=== PATIENT | male | born 1955 | race Caucasian/White ===

== ENCOUNTER 2019-11-13 11:28 | Emergency (ER) | payer BC, SELFPAY ==
[2019-11-13 11:45] VITALS: BMI 40.8
[2019-11-13 11:49] VITALS: BP 152/87; PULSE 74; RESP 18; TEMP 37.1; O2SAT 94
--- NOTE | 2019-11-13 12:10 | XRR_ITS ---
PROCEDURE INFORMATION: Exam: XR Left Knee Exam date and time: 11/13/2019 12:12 PM Age: 64 years old Clinical indication: Pain; Knee; Left TECHNIQUE: Imaging protocol: XR Left knee. Views: 3 views. COMPARISON: No relevant prior studies available. FINDINGS: Bones/joints: There is a subtle linear lucency at the medial tibial plateau seen on the oblique image, a nondisplaced fracture cannot be ruled out. No dislocation. Moderate to severe tricompartment degenerative changes at the knee. There is near complete loss of joint space height at the medial compartment and patellofemoral compartment Large joint effusion. Large calcified enthesophyte at the quadriceps tendon insertion. Bones are mildly osteopenic. Large calcified enthesophyte near the insertion of the patellar tendon. Soft tissues: No soft tissue swelling. No radiopaque foreign body. XR/XR knee LT 3V* [id number] IMPRESSION: 1. There is a subtle linear lucency at the medial tibial plateau seen on the oblique image, a nondisplaced fracture cannot be ruled out. Followup imaging recommended in 7-14 days if clinical concern for fracture persists. 2. Large joint effusion. 3. Moderate to severe degenerative changes at the knee. 4. Incidental/nonacute findings are listed in the report.
--- NOTE | 2019-11-13 12:10 | USR_ITS ---
PROCEDURE INFORMATION: Exam: US Duplex Left Lower Extremity Veins, Limited Exam date and time: 11/13/2019 12:12 PM Age: 64 years old Clinical indication: Pain; Leg, lower; Left; Additional info: Leg pain TECHNIQUE: Imaging protocol: Real-time Duplex ultrasound of the Left Lower Extremity with 2-D mcdaniel scale, color Doppler flow and spectral waveform analysis with image documentation. Limited exam focused on the left lower extremity veins. COMPARISON: No relevant prior studies available. FINDINGS: Left deep veins: Unremarkable. The common femoral, femoral, proximal profunda femoral, popliteal, peroneal, and posterior tibial veins are patent without thrombus. Normal Doppler waveforms. Normal compressibility and/or augmentation response. Left superficial veins: Unremarkable. Saphenofemoral junction is patent without thrombus. Soft tissues: Mild subcutaneous edema in the left lower extremity. US/CV venous duplex [facility] [id number] IMPRESSION: 1. No evidence for deep venous thrombosis. 2. Mild subcutaneous edema in the left lower extremity.
[2019-11-13] MEDS: HYDROcodone-acetaminophen 5-325 mg Tablet 1 TAB PO (12:30)
[2019-11-13 12:36] LABS: Basophils % 0.5 %; Eosinophils # 0.2 10^3/uL (0.0-0.8); Eosinophils % 2.7 %; Hematocrit 40.2 % (42.0-52.0); Lymphocytes # 1.5 10^3/uL (0.8-4.8); Lymphocytes % 17.2 %; Mean Corpuscular HGB Conc 32.3 g/dL (30.0-36.0); Mean Corpuscular Hemoglobin 28.4 pg (28.0-34.0); Mean Corpuscular Volume 87.8 fL (80-94); Mean Platelet Volume 8.7 fL (7.4-10.4); Monocytes # 1.2 10^3/uL (0.2-0.9); Monocytes % 13.4 %; Neutrophils # 5.71 10^3/uL (1.8-7.7); Neutrophils % 65.9 %; Nucleated Red Blood Cells % 0 %; Platelet Count 378 10^3/cmm (130-400); Red Blood Count 4.58 10^6/uL (4.1-5.3); Red Cell Distribution Width 11.8 % (12.1-15.1); White Blood Count 8.7 10^3/uL (4.0-10.0)
[2019-11-13 12:52] LABS: Alanine Aminotransferase 35 U/L (0-41); Albumin Level 3.7 g/dL (3.5-5.2); Alkaline Phosphatase 88 IU/L (40-130); Anion Gap 12.9 (5-19); Aspartate Amino Transferase 20 U/L (0-40); Blood Urea Nitrogen 19 mg/dL (8-23); C Reactive Protein 64.5 mg/L (0.0-4.9); Calcium 8.5 mg/dL (8.5-10.5); Carbon Dioxide 24 mmol/L (22-29); Chloride 105 mmol/L (98-107); Glomerular Filtration Rate 97.3 mL/min (90-130); Glucose 97 mg/dL (65-115); Osmolality Calculated 282 mOsm/kg (285-295); Potassium 3.9 mmol/L (3.5-5.1); Sodium 138 mmol/L (136-145); Total Bilirubin 0.4 mg/dL (0.15-1.2); Total Protein 6.7 g/dL (6.6-8.7)
[2019-11-13 13:20] LABS: Erythrocyte Sedimentation Rate 53 mm/hr (0-10)
--- NOTE | 2019-11-13 13:26 | ED_ITS ---
HPI - Extremity Problem General: Chief complaint: Extremity Problem,Nontraumatic Stated complaint: l knee pain Time Seen by Provider: 11/13/19 12:04 Source: patient Mode of arrival: ambulatory Limitations: no limitations History of Present Illness: HPI Narrative: Nate is a 64-year-old male who comes in complaining of left knee pain. He states the pain is been going on ever since he had a stem cell injection on October 04. The pain is gotten progressively worse. He feels like the pain is now radiating all the way down his leg. He denies any fevers, chills, nausea, vomiting or other complaints. The patient states that he can walk but that does make the pain worse. Patient is unaware of any other injuries that he may have sustained. He states the pain is chronic but worsening. Associated symptoms: Deny chest pain, fever(s) or rash Review of Systems Const: Denies: fever(s), chills, body aches, fatigue, malaise or diaphoresis Eyes: Denies: change in vision, blurry vision, blind spots, photophobia, eye discharge or eye redness ENMT: Denies: throat pain, odynophagia, hoarseness, swelling of lips/tongue, oral sores, ear or mastoid pain, ear discharge, change in hearing or nasal discharge Card: Denies: chest pain, palpitations, irregular heart rhythm, edema, lightheadedness, syncope, pre-syncope, dyspnea on exertion or orthopnea Resp: Denies: dyspnea, productive cough, non-productive cough, wheezing, hemoptysis or chest congestion GI: Denies: abdominal pain, nausea, vomiting, hematemesis, coffee ground emesis, heartburn, diarrhea, constipation, GI cramping, hematochezia or melena : Denies: flank pain, dysuria, urinary frequency, urinary urgency or hematuria Musc: Reports: joint pain; Denies: neck pain, back pain, extremity pain, extremity swelling, joint swelling, joint redness, joint warmth or joint stiffness Skin/Breast: Denies: rash, pruritus, erythema, skin tenderness or jaundice Neuro: Denies: headache(s), numbness in extremities, weakness in extremities, sensory changes, lack of coordination, difficulty walking, dizziness, vertigo, confusion, Slurred speech present or seizure-like activity Jose/Lymph: Denies: easy bruising, easy bleeding, petechiae, purpura or enlarged lymph nodes All/Imm: Denies: urticaria, throat swelling, tongue swelling, facial swelling or acute wheezing PFSH ED PFSH: Medical History Hypertension Osteoarthritis Physical Exam Const: COMMON NORMALS: no acute distress, patient oriented x3, no limitations, healthy appearing and well nourished GENERAL APPEARANCE: cooperative, well kempt and well developed HENMT: COMMON NORMALS: normocephalic, atraumatic, external ears normal, EAC's normal and Normal external nose present HEAD & SCALP: normal to inspection, normocephalic and atraumatic FACE & SINUS: normal facial exam and face symmet joss NOSE: Normal external nose present and Normal nares present EXTERNAL EAR: Yes external ears normal EXTERNAL AUDITORY CANAL: EAC's normal MOUTH: Normal oral and palatal mucosa present, lip normal and tongue normal Eye: COMMON NORMALS: Equal, round and reactive pupils present and conjunctivae normal GENERAL EYE: appearance normal, both eyes and all related structures ALIGNMENT: Yes alignment normal PERIORBITAL: periorbital findings normal EYELID: eyelids normal CONJUNCTIVA: Yes conjunctivae normal SCLERA: sclerae normal PUPIL: Yes Equal, round and reactive pupils present Neck/C-Spine: COMMON NORMALS: full ROM, no lymphadenopathy, supple, no meningeal signs and no JVD GENERAL: Yes normal visual inspection and Yes trachea midline Chest: COMMONS NORMALS: normal inspection of the chest and normal palpation of entire chest wall Resp: COMMON NORMALS: normal respiratory effort, No retractions and No use of accessory muscles EFFORT & INSPECTION: Yes able to speak in complete sentences and Yes symmetric chest movement AUSCULTATION: no crackles, no rales, no rhonchi and no wheezes Cardio: COMMON NORMALS: no JVD, regular rate, regular rhythm, S1 normal heart sound present and S2 normal heart sound present RATE: regular rate RHYTHM: regular rhythm HEART SOUNDS: S1 normal heart sound present, S2 normal heart sound present, no click, no gallops, no murmurs, no rubs and abnormal split S2 GI: COMMON NORMALS: Soft to palpation and No hepatosplenomegaly present PALPATION: Yes Soft to palpation, No Tenderness to palpation present (GI), No Guarding due to palpation present (GI), No Rigid due to palpation, Yes No hepatosplenomegaly present, No Hernia present, No Palpable mass present and No Pulsatile mass present : COMMON NORMALS: Yes no CVA tenderness BLADDER/KIDNEY EXAM: Yes no CVA tenderness Back/Pelvis: COMMON NORMALS: no CVA tenderness, thoracic and lumbar spine normal to inspection, no thoracic nor lumbar tenderness and thoraco-lumbar ROM normal Extremity: NARRATIVE EXTREMITY EXAM: Musculoskeletal exam is unremarkable except at the left knee. Left knee is swollen but not hot or warm to the touch. There is no overlying erythema. He has full range of motion although limited at the very extremes of range of motion secondary to swelling. Neuro: COMMON NORMALS: patient oriented x3, CN's II-XII intact bilaterally, moves all extremities, no focal motor deficits and no sensory deficits noted MENINGEAL SIGNS: Yes no meningeal signs SPEECH: speech normal Psych: COMMON NORMALS: mental status grossly normal, Normal thought process present, cooperative, normal affect, speech normal and activity/motor behavior normal APPEARANCE: Yes well kempt SPEECH: Yes normal speech THOUGHT PROCESS: Normal thought process present Skin: COMMON NORMALS: no rashes or lesions noted, turgor normal, no jaundice, no petechiae and no mottling GENERAL SKIN EXAM: no rashes or lesions noted and turgor normal Procedures Joint Aspiration/Injection Joint Asp./Inject. 1: Time Out Performed: Yes Side of body: left Joint Aspirated: knee Skin Prep: Povidone-Iodine1% Local Anesthetic: lidocaine 1% Amount of anesthesia used (mL): 5 Needle Size Used: 20G Patient Tolerated Procedure: well Additional Comments: Patient was not willing to allow us to attempt another time after 3 failed attempts by me. Course ED course: 1328 -risks of infection in the knee present and I have discussed with the patient risks and benefits of arthrocentesis. He agrees to go ahead and let my nurse practitioner proceed with arthrocentesis. Vital Signs: Vital signs: Vital Signs Temperature 98.7 F 11/13/19 11:49 Pulse Rate 74 11/13/19 11:49 Respiratory Rate 18 11/13/19 15:27 Blood Pressure 127/60 11/13/19 15:27 Pulse Oximetry 94 11/13/19 11:49 MDM - Extremity (Nontraumatic) MDM Narrative: Medical decision making narrative: Nate is a nice 64-year-old male who comes in complaining of left knee pain since early to mid September. Patient states the pain is progressive but has plateaued. This was not sudden onset. There is been no fevers or chills and the patient still has good range of motion of his joint. Is no cause can be found and DVT has been ruled out I recommended arthrocentesis for pressure relief and for diagnosis purposes and the patient consented. Ultimately the patient declined any further attempts. I reviewed the case with Dr. Camejo who states the patient likely just has osteoarthritis despite his elevated sed rate and CRP. He states that can commonly be seen with osteoarthritis. The patient does not have a clinical story consistent with acute infectious joint and at this time he is declining any further attempts at pulling off fluid. Dr. Camejo has agreed to see the patient in his office early this week for follow-up. He would like the patient placed on a Medrol Dosepak and something for pain. We will do this as well as right the patient off work and have him stay off his joint and follow-up with Dr. Camejo. He understands he is taking a risk by leaving without definitive rule out of infections joint but he thinks this is unlikely after we reviewed this and he is ultimately decided himself not to proceed but does understand he can return should he change his mind. Lab Data: Attestation: I reviewed the patient's lab results. Labs: Lab Results 11/13/19 11/13/19 11/13/19 Range/Units 12:16 12:16 12:16 WBC 8.7 (4.0-10.0) 10^3/ uL RBC 4.58 (4.1-5.3) 10^6/u L Hgb 13.0 (11.7-16.6) g/dL Hct 40.2 L (42.0-52.0) % MCV 87.8 (80-94) fL MCH 28.4 (28.0-34.0) pg MCHC 32.3 (30.0-36.0) g/dL RDW 11.8 L (12.1-15.1) % Plt Count 378 (130-400) 10^3/c mm MPV 8.7 (7.4-10.4) fL Neut % (Auto) 65.9 % Lymph % (Auto) 17.2 % [place] % (Auto) 13.4 % Eos % (Auto) 2.7 % Baso % (Auto) 0.5 % Neut # (Auto) 5.71 (1.8-7.7) 10^3/u L Lymph # (Auto) 1.5 (0.8-4.8) 10^3/u L [place] # (Auto) 1.2 H (0.2-0.9) 10^3/u L Eos # (Auto) 0.2 (0.0-0.8) 10^3/u L Baso # (Auto) 0.0 (0.0-0.1) 10^3/u L Nucleated RBC % (a uto) 0 % Nucleated RBCs # 0.0 /100WBC ESR 53 H (0-10) mm/hr Sodium 138 (136-145) mmol/L Potassium 3.9 (3.5-5.1) mmol/L Chloride 105 (98-107) mmol/L Carbon Dioxide 24 (22-29) mmol/L Anion Gap 12.9 (5-19) BUN 19 (8-23) mg/dL Creatinine 0.8 (0.7-1.2) mg/dL GFR Calculation 97.3 (90-130) mL/min Glucose 97 (65-115) mg/dL Calculated Osmolal ity 282 L (285-295) mOsm/k g Uric Acid (3.4-7.0) mg/dL Calcium 8.5 (8.5-10.5) mg/dL Total Bilirubin 0.4 (0.15-1.2) mg/dL AST 20 (0-40) U/L ALT 35 (0-41) U/L Alkaline Phosphata se 88 (40-130) IU/L C-Reactive Protein 64.5 H (0.0-4.9) mg/L Total Protein 6.7 (6.6-8.7) g/dL Albumin 3.7 (3.5-5.2) g/dL Globulin 3.0 (1.3-4.6) g/dL 11/13/19 Range/Units 12:16 WBC (4.0-10.0) 10^3/ uL RBC (4.1-5.3) 10^6/u L Hgb (11.7-16.6) g/dL Hct (42.0-52.0) % MCV (80-94) fL MCH (28.0-34.0) pg MCHC (30.0-36.0) g/dL RDW (12.1-15.1) % Plt Count (130-400) 10^3/c mm MPV (7.4-10.4) fL Neut % (Auto) % Lymph % (Auto) % Canadian % (Auto) % Eos % (Auto) % Baso % (Auto) % Neut # (Auto) (1.8-7.7) 10^3/u L Lymph # (Auto) (0.8-4.8) 10^3/u L Canadian # (Auto) (0.2-0.9) 10^3/u L Eos # (Auto) (0.0-0.8) 10^3/u L Baso # (Auto) (0.0-0.1) 10^3/u L Nucleated RBC % (a uto) % Nucleated RBCs # /100WBC ESR (0-10) mm/hr Sodium (136-145) mmol/L Potassium (3.5-5.1) mmol/L Chloride (98-107) mmol/L Carbon Dioxide (22-29) mmol/L Anion Gap (5-19) BUN (8-23) mg/dL Creatinine (0.7-1.2) mg/dL GFR Calculation (90-130) mL/min Glucose (65-115) mg/dL Calculated Osmolal ity (285-295) mOsm/k g Uric Acid 3.5 (3.4-7.0) mg/dL Calcium (8.5-10.5) mg/dL Total Bilirubin (0.15-1.2) mg/dL AST (0-40) U/L ALT (0-41) U/L Alkaline Phosphata se (40-130) IU/L C-Reactive Protein (0.0-4.9) mg/L Total Protein (6.6-8.7) g/dL Albumin (3.5-5.2) g/dL Globulin (1.3-4.6) g/dL Imaging Data^: Lt. Knee: My impression: Osteoarthritis changes but no evidence of joint effusion or bony erosion. Ultrasound venous Doppler: My impression: Tech interpretation, -no evidence of DVT. Discharge Plan Discharge Patient Disposition: Home Clinical Impression: Osteoarthritis Qualifiers: Osteoarthritis location: knee Osteoarthritis type: primary Laterality: left Qualified Code(s): M17.12 - Unilateral primary osteoarthritis, left knee Condition: Stable Prescriptions: New Medrol (Shant) 4 mg tablets,dose pack See Rx Instructions .ROUTE .COMPLEX Qty: 21 RF: 0 [place] 5-325 mg tablet 1 tab PO Q6H PRN (Reason: pain) 5 Days Qty: 20 RF: 0 No Action penicillin V potassium 250 mg tablet 250 mg PO BID RF: 0 diclofenac sodium 75 mg tablet,delayed release (DR/EC) 75 mg PO BID RF: 0 Discharge Orders: Discharge Order (Routine); Ordered 11/13/19 Ordered By: Toya Walker Referrals: Nate Camejo DO [Physician] - Discharge Diet: Advance as tolerated Discharge Activity: Limit activity as instructed Patient Instructions: Osteoarthritis (ED) Activity Restrictions/Additional Instructions: Please return to the ER immediately for any of the signs or symptoms listed on your discharge instruction sheets, worsening/changing of your symptoms, you are not getting better as quickly as expected, or for ANY other cause or concerns. You have declined further attempts at joint aspiration. A joint infection can be threatening to your joint even your life if there is a deep infection within your knee. If your pain becomes worse, you develop a fever, or you develop any worsening of your pain please return to the ER immediately for recheck. Take the medications as I have prescribed and be certain to follow-up with Dr. Camejo as soon as possible for recheck. Discharge Date/Time: 11/13/19 15:15 Coding Level of Care Code ED Personal Financial Representative for Jerome Fwkvng Exam Comprehensive
[2019-11-13] MEDS: lidocaine 1% INJ 20 mL INTRADERMA (14:12)
[2019-11-13 15:27] VITALS: BP 127/60; RESP 18
[2019-11-13 15:33] LABS: Uric Acid 3.5 mg/dL (3.4-7.0)
[2019-11-13 20:16] LABS: Crystals, Fluid See Path Consult
== END 2019-11-13 15:15 | disposition home or self-care (01) ==
PROVIDERS: Emergency Provider Emergency Medicine
DX: M17.12 Unilateral primary osteoarthritis, left knee (principal); I10 Essential (primary) hypertension
CPT/HCPCS: 12345; 20610; 36415; 73562; 80053; 84550; 85025; 85651; 86140; 87040; 93971; 99281; 99283; E0114

== ENCOUNTER 2019-11-13 17:42 | Emergency (ER) | payer BC, SELFPAY ==
[2019-11-13 17:59] VITALS: BMI 40.8
[2019-11-13 18:01] VITALS: BP 169/98; PULSE 76; RESP 16; TEMP 36.8; O2SAT 96
[2019-11-13 18:25] VITALS: PULSE 77
[2019-11-13 18:37] VITALS: RESP 18; O2SAT 98
[2019-11-13] MEDS: oxyCODONE-APAP 5-325 mg Tablet 2 TAB PO (18:37)
[2019-11-13] MEDS: lidocaine 1% INJ 20 mL INJECTION (18:37)
--- NOTE | 2019-11-13 19:08 | W.ED.EXTPRO ---
HPI - Extremity Problem General: Chief complaint: Extremity Problem,Nontraumatic Stated complaint: L KNEE PAIN Time Seen by Provider: 11/13/19 18:12 History of Present Illness: HPI Narrative: 64-year-old male who he presents to the emergency department for left knee pain and swelling. He presented earlier today with the same symptoms. Attempted aspiration was made, and was unsuccessful. X-ray revealed significant osteoarthritis of the left knee with a large knee joint effusion. He continues to have pain. He denies any fever. MD Complaint: joint swelling and joint pain Onset (ago): week(s) Pain Consistency: constant Location: left and knee Quality: stabbing and aching Radiation: none Relieving factors: nothing Exacerbating factors: range of motion and weight bearing Associated symptoms: Deny chest pain, fever(s) or short of breath Review of Systems Const: Denies: fever(s) or chills Card: Reports: edema; Denies: chest pain Resp: Denies: dyspnea, productive cough or non-productive cough Musc: Reports: joint swelling, joint warmth and joint stiffness [facility] ED PFSH: Medical History (Updated 11/13/19 @ 19:49 by Mono Llanos DO) Hypertension Osteoarthritis Physical Exam Const: COMMON NORMALS: patient oriented x3 Chest: COMMONS NORMALS: normal inspection of the chest Resp: COMMON NORMALS: normal respiratory effort EFFORT & INSPECTION: Yes able to speak in complete sentences Cardio: COMMON NORMALS: regular rate RATE: regular rate PERIPHERAL PULSES: posterior tibial pulses present Extremity: NARRATIVE EXTREMITY EXAM: Examination of the left knee reveals restriction in flexion and extension. There is warmth to the touch. There is a joint effusion present. There is tenderness to palpation diffusely, mostly over the medial compartment. Neuro: COMMON NORMALS: patient oriented x3 and no sensory deficits noted Procedures Joint Aspiration/Injection Joint Asp./Inject. 1: Time Out Performed: No Side of body: left Joint Aspirated: knee Ultrasound Guidance: Yes Skin Prep: Chlorhexidine Local Anesthetic: lidocaine 1% and bupivacaine 0.5% Amount of anesthesia used (mL): 8 Needle Size Used: 18G Fluid Obtained: bloody Total fluid obtained (mL): 35 Patient Tolerated Procedure: well and no complications Course Vital Signs: Vital signs: Vital Signs Temperature 98.3 F 11/13/19 18:01 Pulse Rate 71 07/26/20 20:08 Respiratory Rate 18 11/13/19 20:08 Blood Pressure 135/74 11/13/19 20:08 Pulse Oximetry 96 11/13/19 20:08 MDM - Extremity (Nontraumatic) MDM Narrative: Medical decision making narrative: 64-year-old male with knee joint pain post an autologous stem cell injection over a month ago. He has had pain and swelling developing since and worsening. He is having trouble walking on the knee. We aspirated about 35 mm of slightly turbid bloody fluid from the knee. I later checked on the synovial fluid analysis. There are over 20,000 whites in the fluid. Because of this, the patient was given Levaquin as an outpatient to cover him while he is waiting to follow-up with orthopedics. Lab Data: Attestation: I reviewed the patient's lab results. Labs: Lab Results 11/13/19 Range/Units 19:09 Synovial Color Pale yellow (PALE YELLOW) Synovial Appearanc e Cloudy (CLEAR) Synovial WBC 33466 H (0-150) /uL Synovial RBC 5 H (0-0) 10^3/uL Synovial Mononucle ar 3.532 10^3/uL Synov Polynuclear WBCs 22.759 10^3/uL Synovial Other Myrtle ls Not Reportable Synovial Polynucle ar % 86.500 % Synovial Mononucle ar % 13.500 % Path Cons w/Slide Yes Discharge Plan Discharge Patient Disposition: Home Clinical Impression: Effusion of knee joint, left Osteoarthritis Qualifiers: Osteoarthritis location: knee Osteoarthritis type: primary Laterality: left Qualified Code(s): M17.12 - Unilateral primary osteoarthritis, left knee Condition: Stable Prescriptions: No Action penicillin V potassium 250 mg tablet 250 mg PO BID RF: 0 diclofenac sodium 75 mg tablet,delayed release (DR/EC) 75 mg PO BID RF: 0 Medrol (Shant) 4 mg tablets,dose pack See Rx Instructions .ROUTE .COMPLEX Qty: 21 RF: 0 [place] 5-325 mg tablet 1 tab PO Q6H PRN (Reason: pain) 5 Days Qty: 20 RF: 0 Discharge Orders: Discharge Order (Routine); Ordered 11/13/19 Ordered By: Mono Llanos Referrals: Nate Camejo DO [Physician] - 4-7 days Patient Instructions: Osteoarthritis (ED), Knee Effusion (ED) Activity Restrictions/Additional Instructions: Previous medications as directed. Follow-up with orthopedics as directed prior. You will be notified if your joint fluid begins to grow bacteria. Return for worsening pain despite treatment, fever greater than 100, worsening swelling despite treatment, other concerning symptoms Discharge Date/Time: 11/13/19 20:10 Coding Level of Care Code ED Dredge Worker for Jerome Goldberg Exam Detailed
[2019-11-13 19:22] LABS: Appearance Synovial Fluid CLOUDY (CLEAR); Color Synovial Fluid PALE YELLOW (PALE YELLOW)
[2019-11-13 19:29] LABS: RBC Synovial Fluid 5 10^3/uL (0-0); Synovial Fluid Mononuclear # 3.532 10^3/uL
[2019-11-13 20:08] VITALS: BP 135/74; PULSE 71; RESP 18; O2SAT 96
[2019-11-13 20:51] LABS: PATH Referal YES
== END 2019-11-13 20:10 | disposition home or self-care (01) ==
PROVIDERS: Emergency Provider Emergency Medicine
DX: M25.462 Effusion, left knee (principal); M17.12 Unilateral primary osteoarthritis, left knee; I10 Essential (primary) hypertension
CPT/HCPCS: 12345; 20610; 80500; 87070; 87075; 87205; 89050; 99282; 99283; J3490